=== PATIENT | male | born 1950 | race Caucasian/White ===

== ENCOUNTER 2018-11-20 14:56 | Inpatient (IN) | payer OTHER, MEDICAID ==
[2018-11-20 15:15] LABS: ADD MAN DIFF? NO
[2018-11-20 15:21] LABS: WHITE BLOOD COUNT 18.2 10^3/ul (4.8-10.8)
[2018-11-20 15:21] LABS: BASOPHILS % 0.2 % (0.0-2.0); EOSINOPHILS % 0.1 % (0.0-7.0); HEMATOCRIT 47.9 % (42.0-52.0); HEMOGLOBIN 15.8 g/dl (14.0-18.0); LYMPHOCYTES # 1.3 10^3/ul (0.8-2.9); MEAN CORPUSCULAR HEMOGLOBIN 29.5 pg (29.0-33.0); MEAN CORPUSCULAR VOLUME 89.4 fl (82.0-101.0); MONOCYTE # 1.1 10^3/ul (0.3-0.9); MONOCYTES % 6.3 % (0.0-11.0); NEUTROPHIL # 15.6 10^3/ul (1.6-7.5); PLATELET COUNT 261 10^3/UL (140-415); RED BLOOD COUNT 5.36 10^6/ul (4.70-6.10); RED CELL DISTRIBUTION WIDTH 12.7 % (11.5-14.5)
[2018-11-20] MEDS: CEFTRIAXONE 1 GM/50 ML (PMX) 50 ML IVPB (15:28)
[2018-11-20] MEDS: ACETAMINOPHEN 325 MG TAB PO ×2 (15:29→21:51)
[2018-11-20] MEDS: SODIUM CHLORIDE 0.9% 1L BAG IV* (15:29)
[2018-11-20 15:41] LABS: ALANINE AMINOTRANSFERASE 42 IU/L (13-69); ALBUMIN/GLOBULIN RATIO 1.13; ALKALINE PHOSPHATASE 106 IU/L (42-121); ANION GAP 11 (5-13); ASPARTATE AMINO TRANSFERASE 33 IU/L (15-46); BILIRUBIN,INDIRECT 0.6 mg/dl (0-1.1); BILIRUBIN,TOTAL 0.6 mg/dl (0.2-1.3); BLOOD UREA NITROGEN 16 mg/dl (7-20); CALCIUM 9.7 mg/dl (8.4-10.2); CARBON DIOXIDE 27 mmol/L (21-31); CHLORIDE 99 mmol/L (97-110); Estimated GFR > 60 mL/min (>60); GLUCOSE 122 mg/dl (70-220); POTASSIUM 4.1 mmol/L (3.5-5.1); SODIUM 137 mmol/L (135-144); TOTAL PROTEIN 9.4 g/dl (6.1-8.1)
[2018-11-20 15:46] LABS: INR 0.92; PARTIAL THROMBOPLASTIN TIME 29.5 Sec (23.0-35.0); PROTIME 12.5 Sec (11.9-14.9)
[2018-11-20 15:52] LABS: TROPONIN-I < 0.012 ng/ml (0.000-0.120)
[2018-11-20 16:33] LABS: ADD UMIC YES; UR ASCORBIC ACID NEGATIVE (NEGATIVE); UR BILIRUBIN (Dip) NEGATIVE (NEGATIVE); UR BLOOD (Dip) 3+ mg/dL (NEGATIVE); UR CLARITY SLIGHTLY CLOUDY (CLEAR); UR COLOR STRAW (YELLOW); UR GLUCOSE (Dip) NEGATIVE (NEGATIVE); UR KETONES (Dip) NEGATIVE (NEGATIVE); UR LEUKOCYTE ESTERASE (Dip) 1+ Leu/ul (NEGATIVE); UR NITRITE (Dip) NEGATIVE (NEGATIVE); UR RBC > 182 /HPF (0-5); UR SPECIFIC GRAVITY (Dip) 1.013 (1.003-1.030); UR TOTAL PROTEIN (Dip) 1+ mg/dl (NEGATIVE); UR UROBILINOGEN (Dip) NEGATIVE (NEGATIVE); UR WBC 75 /HPF (0-5)
[2018-11-20] MEDS ORDERED: ONDANSETRON 4 MG INJ IV ×2 (17:00→18:30)
[2018-11-20] MEDS ORDERED: ACETAMINOPHEN 325 MG TAB PO (17:00)
[2018-11-20] MEDS ORDERED: NACL 0.9% 3 ML SYG IV (18:30)
[2018-11-20] MEDS ORDERED: ZOLPIDEM 5 MG TAB PO (18:30)
[2018-11-20] MEDS ORDERED: DOCUSATE SODIUM 100 MG CAP PO (18:30)
[2018-11-20] MEDS ORDERED: ENOXAPARIN 40 MG/0.4 ML SYG SC (18:30)
[2018-11-20] MEDS: SOD CHLORIDE 0.9% 1,000 ML IV (20:15)
[2018-11-20] MEDS: LISINOPRIL 5 MG TAB PO (21:00)
[2018-11-20] MEDS ORDERED: FAMOTIDINE 20 MG TAB PO (21:00)
[2018-11-20] MEDS: METOPROLOL 50 MG TAB PO (21:51)
[2018-11-20] MEDS: LEVETIRACETAM 500 MG TAB PO (21:51)
[2018-11-20] MEDS: FAMOTIDINE 20 MG TAB PO (21:51)
[2018-11-20] MEDS: ATORVASTATIN 20 MG TAB PO (21:51)
[2018-11-20] MEDS: LATANOPROST 0.005% 2.5 ML OPH BOTH EYES (23:02)
[2018-11-20] MEDS: TIMOLOL 0.5% 5 ML OPH BOTH EYES (23:02)
[2018-11-20 23:33] LABS: LACTIC ACID 2.6 mmol/L (0.5-2.0)
[2018-11-21] MEDS: SOD CHLORIDE 0.9% 1,000 ML IV ×4 (03:12→17:49)
[2018-11-21 05:17] LABS: ADD MAN DIFF? NO
[2018-11-21 05:21] LABS: ABNORMAL IP MESSAGE 1; BASOPHILS % 0.2 % (0.0-2.0); HEMATOCRIT 39.8 % (42.0-52.0); HEMOGLOBIN 13.3 g/dl (14.0-18.0); LYMPHOCYTES # 1.8 10^3/ul (0.8-2.9); LYMPHOCYTES % 8.6 % (15.0-51.0); MEAN CORPUSCULAR HEMOGLOBIN 29.8 pg (29.0-33.0); MEAN CORPUSCULAR HGB CONC 33.4 g/dl (32.0-37.0); MEAN CORPUSCULAR VOLUME 89.2 fl (82.0-101.0); MEAN PLATELET VOLUME 10.4 fl (7.4-10.4); MONOCYTE # 1.8 10^3/ul (0.3-0.9); MONOCYTES % 8.4 % (0.0-11.0); NEUTROPHIL # 17.4 10^3/ul (1.6-7.5); PLATELET COUNT 224 10^3/UL (140-415); POSITIVE DIFF @See below; RED BLOOD COUNT 4.46 10^6/ul (4.70-6.10); RED CELL DISTRIBUTION WIDTH 12.7 % (11.5-14.5)
[2018-11-21 05:21] LABS: WHITE BLOOD COUNT 21.2 10^3/ul (4.8-10.8)
[2018-11-21] MEDS: FAMOTIDINE 20 MG TAB PO ×2 (08:13→21:31)
[2018-11-21] MEDS: METOPROLOL 50 MG TAB PO ×2 (08:14→19:42)
[2018-11-21] MEDS: LISINOPRIL 5 MG TAB PO ×2 (08:14→19:42)
[2018-11-21] MEDS: TIMOLOL 0.5% 5 ML OPH BOTH EYES ×2 (08:15→21:31)
[2018-11-21] MEDS: PIPER-TAZO 3.375 GM IV (PMX) 100 ML IVPB ×3 (08:15→21:32)
[2018-11-21] MEDS: LEVETIRACETAM 500 MG TAB PO ×2 (08:15→21:32)
[2018-11-21] MEDS ORDERED: CEFTRIAXONE 1 GM/50 ML (PMX) 50 ML IVPB (09:00)
[2018-11-21] MEDS: ACETAMINOPHEN 325 MG TAB PO ×2 (13:12→19:41)
[2018-11-21] MEDS: ATORVASTATIN 20 MG TAB PO (21:31)
[2018-11-21] MEDS: LATANOPROST 0.005% 2.5 ML OPH BOTH EYES (21:42)
[2018-11-22] MEDS: PIPER-TAZO 3.375 GM IV (PMX) 100 ML IVPB ×2 (05:29→14:13)
[2018-11-22] MEDS: SOD CHLORIDE 0.9% 1,000 ML IV ×2 (05:30→10:03)
[2018-11-22 06:10] LABS: ADD MAN DIFF? NO
[2018-11-22 06:16] LABS: BASOPHILS % 0.2 % (0.0-2.0); EOSINOPHILS % 0.1 % (0.0-7.0); HEMATOCRIT 39.7 % (42.0-52.0); HEMOGLOBIN 13.1 g/dl (14.0-18.0); LYMPHOCYTES # 0.6 10^3/ul (0.8-2.9); LYMPHOCYTES % 7.5 % (15.0-51.0); MEAN CORPUSCULAR HEMOGLOBIN 29.4 pg (29.0-33.0); MEAN CORPUSCULAR VOLUME 89.2 fl (82.0-101.0); MEAN PLATELET VOLUME 10.3 fl (7.4-10.4); MONOCYTE # 0.6 10^3/ul (0.3-0.9); MONOCYTES % 6.9 % (0.0-11.0); NEUTROPHIL # 6.9 10^3/ul (1.6-7.5); NEUTROPHILS % 84.3 % (39.0-77.0); PLATELET COUNT 177 10^3/UL (140-415); RED BLOOD COUNT 4.45 10^6/ul (4.70-6.10); RED CELL DISTRIBUTION WIDTH 12.6 % (11.5-14.5)
[2018-11-22 06:16] LABS: WHITE BLOOD COUNT 8.2 10^3/ul (4.8-10.8)
[2018-11-22] MEDS: LEVETIRACETAM 500 MG TAB PO (09:30)
[2018-11-22] MEDS: FAMOTIDINE 20 MG TAB PO (09:30)
[2018-11-22] MEDS: LISINOPRIL 5 MG TAB PO (09:31)
[2018-11-22] MEDS: TIMOLOL 0.5% 5 ML OPH BOTH EYES (09:31)
[2018-11-22] MEDS: METOPROLOL 50 MG TAB PO (09:31)
[2018-11-22] MEDS: ACETAMINOPHEN 325 MG TAB PO (14:17)
== END 2018-11-22 18:54 | disposition home health service (06) | DRG 690 ==
LOC: E/R 14:56 → 2NE 16:36
DX: N30.01 Acute cystitis with hematuria (principal); I69.351 Hemiplegia and hemiparesis following cerebral infarction affecting right dominant side; I10 Essential (primary) hypertension; R32 Unspecified urinary incontinence; G40.909 Epilepsy, unspecified, not intractable, without status epilepticus; G30.9 Alzheimer's disease, unspecified; F02.80 Dementia in other diseases classified elsewhere, unspecified severity, without behavioral disturbance, psychotic disturbance, mood disturbance, and anxiety; E78.5 Hyperlipidemia, unspecified; Z96.642 Presence of left artificial hip joint
CPT/HCPCS: 36415; 71045; 80053; 81001; 83605; 84484; 85025; 85610; 85730; 87040; 87086; 93005; 96374; 99291-25